=== PATIENT | female | born 1960 | race Two or more races ===

== ENCOUNTER 2019-01-19 15:57 | Emergency (ER) | payer SELFPAY ==
--- NOTE | 2019-01-19 16:01 | UC ---
Lower Extremity/Ankle HPI - HPI Summary HPI Summary: Patient is a 58 year old female, who present today to the urgent care with her son(who is translating for her, she does not understand Wallisian and speaks Frisian) for left leg pain since today morning. She points to the distal thigh posteriorly as the site of pain, noticed pain while getting off the plane today after 12 hour flight from [place]. Since onset her symptoms have stayed the same. She denies any trauma or injury. No pain while sitting but notices pain while walking to the point that she is limping. Denies any fever, chills, cough chest pain or shortness of breath . No . Denies any abdominal pain , nausea or vomiting , diarrhea or constipation. - History of Current Complaint Stated Complaint: L LEG PAIN Time Seen by Provider: 01/19/19 15:59 Hx Last Menstrual Period: hysterectomy ?: No - Allergies/Home Medications Allergies/Adverse Reactions: Allergies Allergy/AdvReac Type Severity Reaction Status Date / Time No Known Allergies Allergy Verified 01/19/19 16:13 Home Medications: Home Medications Hormone Replacement Therapy 1 mg PO DAILY WITH MEAL 01/19/19 [History Confirmed 01/19/19] PMH/Surg Hx/FS Hx/Imm Hx - Additional Past Medical History Additional PMH: on hormone replacement therapy status post hysterectomy. Denies any high blood pressure, hypertension and diabetes. Family history significant for stroke in her father, Coronary artery disease status post stent placement in her father Review of Systems All Other Systems Reviewed And Are Negative: Yes Constitutional: Positive: Negative Skin: Positive: Negative Eyes: Positive: Negative ENT: Positive: Negative Respiratory: Positive: Negative Cardiovascular: Positive: Negative Gastrointestinal: Positive: Negative Genitourinary: Positive: Negative Motor: Positive: Negative Neurovascular: Positive: Negative Musculoskeletal: Positive: Myalgia - distal thigh, Other: - painful range of motion Neurological: Positive: Negative Psychological: Positive: Negative Is Patient Immunocompromised?: No Physical Exam - Summary Physical Exam Summary: Physical Exam: Const: Appears well. No signs of apparent distress present. Alert and oriented x 3. Musculo: Walks withan antalgic gait. there is tenderness to palpation in the distal posterior thigh, no swelling or bruising. Distal thigh circumference measured equal at 17 inches bilaterally at the site of pain. No cough tenderness or swelling noted. painful knee range of motion but full-points pain in the distal thigh J Luis's test is negative Head/Face: Atraumatic, normocephalic on inspection. Eyes: EOMI and PERRLA in both eyes. Conjunctivae clear. No discharge noted ENT: Hearing normal Respiratory: Respirations are unlabored. Lungs clear to auscultation bilaterally, no wheezing , rhonchi or rales noted . CVS: Regular rate and Rhythm, S1S2 normal , no murmurs identified. Extremities: Peripheral circulation is grossly normal. Pulses 2+ Abdomen : Soft non tender , nondistended , Bowel sounds present . No guarding , rebound tenderness or rigidity noted. Skin: No lesions or rash located on the upper extremities or on the lower extremities. Neuro: Cranial nerves II to XII intact, motor and sensory intact. DTR Intact bilaterally. Mood is normal. Affect is normal. Triage Information Reviewed: Yes Vital Signs Reviewed: Yes Lower Extremity Course/Dx - Course Course Of Treatment: Suspect DVT with history of international flight and her being on hormone replacement which predisposes her to DVT,butthe possibility of distal hamstring strain but she denies any event or mechanism.Patient needs additional testing, thus ER transfer advised and patient agrees. Report called to the Charge Nurse Harper at [facility], advised provider of the history, physical examination, and duration of illness so far and the need for definitive management. her son will drive her to the ER. Vitals are stable at the sign of discharge. - Differential Dx/Diagnosis Differential Diagnosis/HQI/PQRI: Other - distal hamstring strain Provider Diagnosis: DVT (deep venous thrombosis) Discharge - Sign-Out/Discharge Documenting (check all that apply): Patient Departure All imaging exams completed and their final reports reviewed: No Studies - Discharge Plan Condition: Stable Disposition: HOME-RECOMMEND TO ED Patient Education Materials: Deep Vein Thrombosis (ED) Referrals: No Primary Care Phys,NOPCP [Primary Care Provider] - Additional Instructions: Patient needs additional testing, thus ER transfer advised and patient agrees. Report called to the Charge Nurse Harper at [facility], advised provider of the history, physical examination, and duration of illness so far and the need for definitive management. - Billing Disposition and Condition Condition: STABLE Disposition: Home-Recommend to ED
[2019-01-19 16:13] VITALS: BP 133/62
== END 2019-01-19 16:41 | disposition home health service (06) ==
LOC: UCEAST 15:57
DX: I82.402 Acute embolism and thrombosis of unspecified deep veins of left lower extremity (principal); Z79.890 Hormone replacement therapy; Z90.710 Acquired absence of both cervix and uterus; Z82.49 Family history of ischemic heart disease and other diseases of the circulatory system
CPT/HCPCS: 99201; G0463

== ENCOUNTER 2019-01-19 16:55 | Emergency (ER) | payer SELFPAY ==
[2019-01-19 20:15] LABS: ABS Eosinophils 0.2 10^3/ul (0-0.6); ABS Lymphocytes 3.4 10^3/ul (1.0-4.8); ABS Monocytes 0.4 10^3/ul (0-0.8); ABS Neutrophils 3.1 10^3/ul (1.5-7.7); Eosinophil % 2.8 %; Hematocrit 40 % (35-47); Hemoglobin 13.7 g/dL (12.0-16.0); Lymphocyte % 47.7 %; Mean Corpuscular HGB Conc 34 g/dL (31-36); Mean Corpuscular Hemoglobin 33 pg (27-31); Mean Corpuscular Volume 97 fL (80-97); Mean Platelet Volume 8.8 fL (7.4-10.4); Nucleated Red Blood Cells % 0.1; Platelet Count 229 10^3/uL (150-450); Red Blood Count 4.16 10^6 /uL (3.70-4.87); Red Cell Distribution Width 12 % (10.5-15); White Blood Count 7.2 10^3/uL (3.5-10.8)
[2019-01-19 20:23] LABS: INR 0.95 (0.82-1.09)
[2019-01-19 20:31] LABS: Albumin 4.1 g/dL (3.2-5.2); Albumin/Globulin Ratio 1.3 (1-3); BUN/Creatinine Ratio 17.9 (8-20); Calcium 9.6 mg/dL (8.6-10.3); EGFR African American 72.6 (>60); Globulin 3.1 g/dL (2-4); Potassium 4.3 mmol/L (3.5-5.0); Total Bilirubin 0.8 mg/dL (0.2-1.0); Total Protein 7.2 g/dL (6.4-8.9)
--- NOTE | 2019-01-19 21:02 | ED ---
Lower Extremity - HPI Summary HPI Summary: 58-year-old female presents with left calf pain for the past day. States just came from [place]. She is taking hormone therapy. She does have family history of cardiac disease. She is nonsmoker. No recent surgeries. she denies any chest pain or shortness breath. She denies any injury. She has pain was in her left thigh and then moved to her left calf. States has cramping type pain. Is worse when she is walking. no numbness or tingling. pain is intermittent. - History of Current Complaint Chief Complaint: EDExtremityLower Stated Complaint: "LEFT LEG PAIN PER PT" Time Seen by Provider: 01/19/19 19:48 Hx Last Menstrual Period: hysterectomy Pain Intensity: 6 - Allergies/Home Medications Allergies/Adverse Reactions: Allergies Allergy/AdvReac Type Severity Reaction Status Date / Time No Known Allergies Allergy Verified 01/19/19 19:59 PMH/Surg Hx/FS Hx/Imm Hx Endocrine/Hematology History: Denies: Hx Diabetes, Hx Thyroid Disease Cardiovascular History: Denies: Hx Hypertension Respiratory History: Denies: Hx Asthma, Hx Chronic Obstructive Pulmonary Disease (COPD) GI History: Denies: Hx Ulcer - Surgical History Surgery Procedure, Year, and Place: hysterectomy. right knee. right hand - Immunization History Date of Tetanus Vaccine: unk Date of Influenza Vaccine: unk Infectious Disease History: No Infectious Disease History: Reports: Traveled Outside the [place] in Last 30 Days - [facility] Denies: Hx Hepatitis, Hx Human Immunodeficiency Virus (HIV) - Family History Known Family History: Positive: Cardiac Disease - Social History Alcohol Use: None Substance Use Type: Reports: None Smoking Status (MU): Never Smoked Tobacco Review of Systems Negative: Fever Negative: Chest Pain Negative: Shortness Of Breath Positive: Myalgia - left leg pain All Other Systems Reviewed And Are Negative: Yes Physical Exam Triage Information Reviewed: Yes Vital Signs On Initial Exam: Initial Vitals Temp Pulse Resp BP Pulse Ox 97.8 F 61 16 143/77 97 01/19/19 17:01 01/19/19 17:01 01/19/19 17:01 01/19/19 17:01 01/19/19 17:01 Vital Signs Reviewed: Yes Appearance: Positive: Well-Appearing Skin: Positive: Warm, Dry Head/Face: Positive: Normal Head/Face Inspection Eyes: Positive: Normal, Conjunctiva Clear ENT: Positive: Pharynx normal Respiratory/Lung Sounds: Positive: Clear to Auscultation, Breath Sounds Present Cardiovascular: Positive: Normal, RRR Musculoskeletal: Positive: Strength/ROM Intact - left leg, Other - good pulses, nontender left leg. Negative: J Luis Sign Left, Edema Left Neurological: Positive: Normal Psychiatric: Positive: Normal Diagnostics - Vital Signs Vital Signs Temp Pulse Resp BP Pulse Ox 01/19/19 17:01 97.8 F 61 16 143/77 97 - Laboratory Lab Results: Lab Results 01/19/19 01/19/19 01/19/19 Range/Units 14:38 14:38 14:38 WBC 7.2 (3.5-10.8) 10^3/uL RBC 4.16 (3.70-4.87) 10^6 /uL Hgb 13.7 (12.0-16.0) g/dL Hct 40 (35-47) % MCV 97 (80-97) fL MCH 33 H (27-31) pg MCHC 34 (31-36) g/dL RDW 12 (10.5-15) % Plt Count 229 (150-450) 10^3/uL MPV 8.8 (7.4-10.4) fL Neut % (Auto) 42.9 % Lymph % (Auto) 47.7 % [place] % (Auto) 6.1 % Eos % (Auto) 2.8 % Baso % (Auto) 0.5 % Absolute Neuts (auto) 3.1 (1.5-7.7) 10^3/ul Absolute Lymphs (auto) 3.4 (1.0-4.8) 10^3/ul Absolute Monos (auto) 0.4 (0-0.8) 10^3/ul Absolute Eos (auto) 0.2 (0-0.6) 10^3/ul Absolute Basos (auto) 0.0 (0-0.2) 10^3/ul Absolute Nucleated RBC 0.0 10^3/ul Nucleated RBC % 0.1 INR (Anticoag Therapy) 0.95 (0.82-1.09) Sodium 139 (135-145) mmol/L Potassium 4.3 (3.5-5.0) mmol/L Chloride 105 (101-111) mmol/L Carbon Dioxide 29 (22-32) mmol/L Anion Gap 5 (2-11) mmol/L BUN 17 (6-24) mg/dL Creatinine 0.95 (0.51-0.95) mg/dL Est GFR ( Amer) 72.6 (>60) Est GFR (Non-Af Amer) 60.0 (>60) BUN/Creatinine Ratio 17.9 (8-20) Glucose 116 H (70-100) mg/dL Calcium 9.6 (8.6-10.3) mg/dL Total Bilirubin 0.80 (0.2-1.0) mg/dL AST 23 (13-39) U/L ALT 27 (7-52) U/L Alkaline Phosphatase 68 (34-104) U/L Total Protein 7.2 (6.4-8.9) g/dL Albumin 4.1 (3.2-5.2) g/dL Globulin 3.1 (2-4) g/dL Albumin/Globulin Ratio 1.3 (1-3) Result Diagrams: 01/19/19 14:38 01/19/19 14:38 Lab Statement: Any lab studies that have been ordered have been reviewed, and results considered in the medical decision making process. - Ultrasound No standard instances Ultrasound Interpretation Completed By: Radiologist Summary of Ultrasound Findings: IMPRESSION: No evidence of DVT in the left leg. Lower Extremity Course/Dx - Course Course Of Treatment: 58-year-old female presents with left calf pain for the past day. States just came from over [facility]. She is taking hormone therapy. She does have family history of cardiac disease. She is nonsmoker. No recent surgeries. she denies any chest pain or shortness breath. She denies any injury. She has pain was in her left thigh and then moved to her left calf. States has cramping type pain. Is worse when she is walking. no numbness or tingling. On exam his nontender leg. neurovascular intact. Negative Homans sign. Ultrasound normal. Labwork without significant abnormality. Discuss we' ll treat with rice. Patient understands agrees with plan. - Diagnoses Differential Diagnosis/HQI/PQRI: Positive: DVT, Sprain, Strain Provider Diagnoses: Left leg pain Discharge - Sign-Out/Discharge Documenting (check all that apply): Patient Departure Patient Received Moderate/Deep Sedation with Procedure: No - Discharge Plan Condition: Good Disposition: HOME Patient Education Materials: Leg Pain (ED) Referrals: No Primary Care Phys,NOPCP [Primary Care Provider] - Additional Instructions: Use compression socks Ice Elevate Take Tylenol for pain every 6 hours Return to ED if develop any new or worsening symptoms - Billing Disposition and Condition Condition: GOOD Disposition: Home
[2019-01-19 21:28] VITALS: BP 136/75
== END 2019-01-19 21:27 | disposition home or self-care (01) ==
LOC: ED 16:55
DX: M79.662 Pain in left lower leg (principal); Z79.890 Hormone replacement therapy
CPT/HCPCS: 36415; 80053; 85025; 85610; 99282